=== PATIENT | female | born 1950 | race African-American/Black ===

== ENCOUNTER 2021-11-24 23:47 | Inpatient (IN) | payer MEDICARE, MEDICAID ==
[2021-11-25 00:40] LABS: INR-International Normal Ratio 1.8; Prothrombin Time 18.8 sec (9.5-12.1)
[2021-11-25 00:41] LABS: Bilirubin Neg (Negative); Blood, Urine 10 (Negative); Clarity Cloudy (Clear); Glucose, Urine (Dipstick) >=1000 mg/dL (Negative); Ketone, Urine Negative (Negative); Leukocyte Negative (Negative); Nitrite Positive (Negative); Protein, Urine (Dipstick) 15 mg/dl (Neg-Trace); Specific Gravity, Urine 1.015 (1.002-1.036); Urobilinogen Normal mg/dL (Less than 2)
[2021-11-25 00:45] LABS: ALT (SGPT) 22 U/L (8-55); AST (SGOT) 25 U/L (5-34); Albumin 3.4 g/dL (3.4-4.8); Alkaline Phosphatase 27 U/L (40-110); Anion Gap 13 mmol/L (10-20); BUN (Urea Nitrogen) 17 mg/dL (9.8-20.1); Bilirubin, Total 0.3 mg/dL (0.2-1.2); Calc. Creatinine Clearance 0 mL/min (70-130); Calcium 8.4 mg/dL (7.8-10.44); Carbon Dioxide 22 mmol/L (23-31); Chloride 109 mmol/L (98-107); Globulin 2.6 g/dL (2.4-3.5); Glucose 95 mg/dL (83-110); Magnesium 1.8 mg/dL (1.6-2.6); Potassium 3.9 mmol/L (3.5-5.1); Sodium 140 mmol/L (136-145)
[2021-11-25 00:50] LABS: RBC/HPF 0-3 HPF (0-3)
[2021-11-25 00:51] LABS: Bacteria/HPF 3+ HPF (None Seen); Mucous/LPF 1+ LPF (<2+)
[2021-11-25 01:16] LABS: SARS-CoV-2 NAA Rapid Test Not Detected (NotDetected)
[2021-11-25] MEDS ORDERED: cefTRIAXone\\ROCEPHIN 2 GM VIAL ONE (01:21)
[2021-11-25 02:20] LABS: #Eosinphils 0.1 10x3/uL (0.0-0.5); #Monocytes 0.6 10x3/uL (0.0-1.1); #Neutrophils 9.6 10x3/uL (1.5-8.4); %Basophils 0.1 % (0.0-2.0); %Eosinophils 0.7 % (0.0-6.0); %Lymphocytes 7.6 % (18.0-47.0); %Monocytes 5.7 % (0.0-10.0); %Neutrophils 85.6 % (40.0-75.0); Hemoglobin 9.4 g/dL (12.0-15.5); Mean Corpuscular HGB CONC 30.6 g/dL (32.0-36.0); Mean Corpuscular Hemoglobin 23.5 pg (27.0-33.0); Mean Corpuscular Volume 76.8 fl (81.6-98.3); Mean Platelet Volume 10.4 fl (7.4-10.4); Platelet Count 167 10x3/uL (150-450); RBC Distribution Width 21.6 % (11.5-14.5); White Blood Cell (WBC) Count 11.2 10x3/uL (3.5-10.5)
[2021-11-25] MEDS ORDERED: Pantoprazole 40 MG VIAL ONE (02:45)
[2021-11-25] MEDS ORDERED: Ventolin HFA Inhaler 60 PUFF INHALER INH PRN (03:46)
[2021-11-25] MEDS ORDERED: clonazePAM 1 MG TAB PO PRN (03:46)
[2021-11-25] MEDS ORDERED: Warfarin Sodium 2 MG TAB PO SCH (04:45)
[2021-11-25] MEDS: Sodium Chloride 0.9% 1,000 ML IV SCH ×2 (04:52→14:08)
[2021-11-25 05:51] LABS: Lactic Acid 0.4 mmol/L (0.5-2.2)
[2021-11-25 05:53] LABS: #Eosinphils 0.1 10x3/uL (0.0-0.5); #Monocytes 0.7 10x3/uL (0.0-1.1); %Basophils 0.2 % (0.0-2.0); %Eosinophils 1.1 % (0.0-6.0); %Neutrophils 78.4 % (40.0-75.0); Hemoglobin 9.4 g/dL (12.0-15.5); Mean Corpuscular Volume 77.3 fl (81.6-98.3); Mean Platelet Volume 11.3 fl (7.4-10.4); Platelet Count 168 10x3/uL (150-450); RBC Distribution Width 21.8 % (11.5-14.5); Red Blood Cell (RBC) Count 3.92 10x6/uL (3.90-5.03); White Blood Cell (WBC) Count 10.2 10x3/uL (3.5-10.5)
[2021-11-25 05:57] LABS: Anion Gap 12 mmol/L (10-20); BUN (Urea Nitrogen) 13 mg/dL (9.8-20.1); Calc. Creatinine Clearance 61 mL/min (70-130); Calcium 8.4 mg/dL (7.8-10.44); Carbon Dioxide 21 mmol/L (23-31); Chloride 112 mmol/L (98-107); Glucose 94 mg/dL (83-110); Magnesium 1.9 mg/dL (1.6-2.6); Potassium 4.1 mmol/L (3.5-5.1); Sodium 141 mmol/L (136-145)
[2021-11-25 06:13] LABS: Troponin I 0.014 ng/mL (< 0.028)
[2021-11-25 06:19] LABS: Amphetamine Not Detected (NotDetected); Barbiturates Screen Not Detected (NotDetected); Benzodiazepine Screen Not Detected (NotDetected); Cocaine Metabolite Screen Not Detected (NotDetected); Methadone Not Detected (NotDetected); Methamphetamine Not Detected (NotDetected); Opiate Screen Not Detected (NotDetected); Oxycodone Screen Not Detected (NotDetected); Phencyclidine (PCP) Not Detected (NotDetected); THC/Cannabinoid Screen Not Detected (NotDetected); Tricyclic Screen Not Detected (NotDetected)
[2021-11-25 06:42] LABS: Ferritin 11.32 ng/mL (10-291)
[2021-11-25] MEDS: Empagliflozin 25 MG TAB PO SCH (08:51)
[2021-11-25] MEDS: Pancrelipase DR 12,000 1 CAP PO SCH ×3 (08:52→17:44)
[2021-11-25] MEDS: Trospium 20 MG TAB PO SCH ×2 (08:52→21:12)
[2021-11-25] MEDS: Losartan 25 MG TAB PO SCH (08:52)
[2021-11-25] MEDS ORDERED: Escitalopram Oxalate 10 mg Tablet PO SCH (09:00)
[2021-11-25] MEDS ORDERED: Warfarin Sodium 7.5 MG TAB PO SCH (17:00)
[2021-11-25] MEDS: Montelukast Sodium 10 mg Tablet PO SCH (21:12)
[2021-11-25] MEDS: Rosuvastatin 10 MG TAB PO SCH (21:12)
[2021-11-25] MEDS: traZODone HCl 50 MG TAB PO SCH (21:12)
[2021-11-25] MEDS: Aspirin 81 mg Enteric Coated Tablet PO SCH (21:12)
[2021-11-25] MEDS: Heparin 5,000 UNITS/ML VIAL SC SCH (21:44)
[2021-11-26] MEDS: cefTRIAXone\\ROCEPHIN 1 GM in Sodium Chloride 0.9% 100 ML IVPB SCH (01:13)
[2021-11-26] MEDS: Sodium Chloride 0.9% 1,000 ML IV SCH ×3 (01:16→21:20)
[2021-11-26 04:27] LABS: #Eosinphils 0.1 10x3/uL (0.0-0.5); #Monocytes 0.5 10x3/uL (0.0-1.1); #Neutrophils 3.1 10x3/uL (1.5-8.4); %Basophils 0.2 % (0.0-2.0); %Eosinophils 1.4 % (0.0-6.0); %Lymphocytes 27.3 % (18.0-47.0); %Monocytes 9.6 % (0.0-10.0); %Neutrophils 61.3 % (40.0-75.0); Hemoglobin 8.8 g/dL (12.0-15.5); Mean Corpuscular HGB CONC 30.7 g/dL (32.0-36.0); Mean Corpuscular Hemoglobin 23.8 pg (27.0-33.0); Mean Corpuscular Volume 77.6 fl (81.6-98.3); Platelet Count 151 10x3/uL (150-450); RBC Distribution Width 21.9 % (11.5-14.5)
[2021-11-26 04:41] LABS: Anion Gap 10 mmol/L (10-20); BUN (Urea Nitrogen) 9 mg/dL (9.8-20.1); Calc. Creatinine Clearance 62 mL/min (70-130); Carbon Dioxide 20 mmol/L (23-31); Chloride 116 mmol/L (98-107); Glucose 107 mg/dL (83-110); Potassium 3.3 mmol/L (3.5-5.1); Sodium 143 mmol/L (136-145)
[2021-11-26 04:49] LABS: INR-International Normal Ratio 1.6; Prothrombin Time 17.2 sec (9.5-12.1)
[2021-11-26] MEDS ORDERED: Ferrous Gluconate 324 MG TAB PO SCH (08:00)
[2021-11-26] MEDS: Folic Acid 1 MG TAB PO SCH (08:38)
[2021-11-26] MEDS: Losartan 25 MG TAB PO SCH (08:38)
[2021-11-26] MEDS: Pancrelipase DR 12,000 1 CAP PO SCH ×3 (08:39→17:23)
[2021-11-26] MEDS: Empagliflozin 25 MG TAB PO SCH (08:39)
[2021-11-26] MEDS: Heparin 5,000 UNITS/ML VIAL SC SCH ×3 (13:22→21:26)
[2021-11-26] MEDS: Trospium 20 MG TAB PO SCH ×2 (13:22→21:26)
[2021-11-26] MEDS: Escitalopram Oxalate 20 mg Tablet PO SCH (13:23)
[2021-11-26] MEDS ORDERED: GoLYTELY 4,000 ml Bottle PO SCH (18:00)
[2021-11-26] MEDS ORDERED: Dextrose 50% Abboject 50 ML SYRINGE SLOW IVP SCH (21:15)
[2021-11-26] MEDS: Montelukast Sodium 10 mg Tablet PO SCH (21:18)
[2021-11-26] MEDS: Aspirin 81 mg Enteric Coated Tablet PO SCH (21:18)
[2021-11-26] MEDS: Rosuvastatin 10 MG TAB PO SCH (21:18)
[2021-11-26] MEDS: traZODone HCl 50 MG TAB PO SCH (23:36)
[2021-11-27] MEDS: cefTRIAXone\\ROCEPHIN 1 GM in Sodium Chloride 0.9% 100 ML IVPB SCH (01:22)
[2021-11-27] MEDS: Dextrose 5 % And 0.9 % NaCl 1,000 ML IV SCH ×2 (04:05→16:37)
[2021-11-27 04:32] LABS: #Eosinphils 0.1 10x3/uL (0.0-0.5); #Monocytes 0.6 10x3/uL (0.0-1.1); %Basophils 0.1 % (0.0-2.0); %Eosinophils 1.2 % (0.0-6.0); %Lymphocytes 10.4 % (18.0-47.0); %Monocytes 7.8 % (0.0-10.0); %Neutrophils 80.2 % (40.0-75.0); Mean Corpuscular HGB CONC 30.5 g/dL (32.0-36.0); Mean Corpuscular Volume 78.8 fl (81.6-98.3); Platelet Count 183 10x3/uL (150-450); RBC Distribution Width 22.2 % (11.5-14.5); Red Blood Cell (RBC) Count 4.16 10x6/uL (3.90-5.03); White Blood Cell (WBC) Count 7.5 10x3/uL (3.5-10.5)
[2021-11-27 04:42] LABS: Anion Gap 13 mmol/L (10-20); BUN (Urea Nitrogen) 5 mg/dL (9.8-20.1); Calc. Creatinine Clearance 68 mL/min (70-130); Calcium 8.8 mg/dL (7.8-10.44); Carbon Dioxide 23 mmol/L (23-31); Chloride 117 mmol/L (98-107); Glucose 78 mg/dL (83-110); Potassium 3.9 mmol/L (3.5-5.1); Sodium 149 mmol/L (136-145)
[2021-11-27 04:56] LABS: Platelet Morphology Comment Appears Adequate
[2021-11-27 04:58] LABS: Hypochromia SLIGHT = 6-15 cells (100X) (0-5/hpf); Macrocytosis SLIGHT = 6-15 cells (100X) (0-5/hpf); Microcytosis SLIGHT = 6-15 cells (100X) (0-5/hpf); Poikilocytosis SLIGHT = 6-15 cells (100X) (0-5/hpf); Schistocytes SLIGHT = 2-5 cells (100X) (0-1/hpf); Target Cells SLIGHT = 2-5 cells (100X) (0-1/hpf); Tear Drops SLIGHT = 2-5 cells (100X) (0-1/hpf)
[2021-11-27 04:59] LABS: Anisocytosis SLIGHT = 6-15 cells (100X) (0-5/hpf); Elliptocytes SLIGHT = 2-5 cells (100X) (0-1/hpf)
[2021-11-27 05:09] LABS: INR-International Normal Ratio 1.4; Prothrombin Time 14.5 sec (9.5-12.1)
[2021-11-27] MEDS ORDERED: GoLYTELY 4,000 ml Bottle PO SCH (07:00)
[2021-11-27] MEDS: Pancrelipase DR 12,000 1 CAP PO SCH ×3 (09:15→16:22)
[2021-11-27] MEDS: Folic Acid 1 MG TAB PO SCH (09:16)
[2021-11-27] MEDS: Losartan 25 MG TAB PO SCH (09:16)
[2021-11-27] MEDS: Escitalopram Oxalate 20 mg Tablet PO SCH (09:16)
[2021-11-27] MEDS: Trospium 20 MG TAB PO SCH ×2 (09:16→21:35)
[2021-11-27] MEDS: Empagliflozin 25 MG TAB PO SCH (09:20)
[2021-11-27] MEDS ORDERED: PROPOFOL 40 ML ONE (13:50)
[2021-11-27] MEDS ORDERED: Lidocaine 2% MPF 10 ML AMP (For Epidural Use) ONE (13:50)
[2021-11-27] MEDS ORDERED: PHENYLEPHRINE-NS 100 MCG/ML 10 ML SYRINGE ONE (14:40)
[2021-11-27] MEDS ORDERED: Warfarin Sodium 10 MG TAB PO SCH (18:00)
[2021-11-27] MEDS: Rosuvastatin 10 MG TAB PO SCH (21:35)
[2021-11-27] MEDS: Montelukast Sodium 10 mg Tablet PO SCH (21:35)
[2021-11-27] MEDS: Aspirin 81 mg Enteric Coated Tablet PO SCH (21:35)
[2021-11-27] MEDS: traZODone HCl 50 MG TAB PO SCH (21:35)
[2021-11-27] MEDS: Enoxaparin Sodium 60 MG/0.6 ML SYRINGE SC SCH (21:36)
[2021-11-28] MEDS: cefTRIAXone\\ROCEPHIN 1 GM in Sodium Chloride 0.9% 100 ML IVPB SCH (01:44)
[2021-11-28 04:40] LABS: Anion Gap 11 mmol/L (10-20); BUN (Urea Nitrogen) Less than 4 mg/dL (9.8-20.1); Calc. Creatinine Clearance 72 mL/min (70-130); Calcium 7.9 mg/dL (7.8-10.44); Carbon Dioxide 22 mmol/L (23-31); Chloride 114 mmol/L (98-107); Glucose 89 mg/dL (83-110); Potassium 3.5 mmol/L (3.5-5.1); Sodium 143 mmol/L (136-145)
[2021-11-28 04:42] LABS: #Eosinphils 0.2 10x3/uL (0.0-0.5); #Monocytes 0.5 10x3/uL (0.0-1.1); #Neutrophils 3.5 10x3/uL (1.5-8.4); %Basophils 0.2 % (0.0-2.0); %Lymphocytes 21.7 % (18.0-47.0); %Monocytes 8.9 % (0.0-10.0); Hemoglobin 8.8 g/dL (12.0-15.5); Mean Corpuscular HGB CONC 31.3 g/dL (32.0-36.0); Mean Corpuscular Hemoglobin 24.2 pg (27.0-33.0); Mean Corpuscular Volume 77.2 fl (81.6-98.3); Mean Platelet Volume 10.9 fl (7.4-10.4); Platelet Count 156 10x3/uL (150-450); RBC Distribution Width 21.4 % (11.5-14.5); Red Blood Cell (RBC) Count 3.64 10x6/uL (3.90-5.03); White Blood Cell (WBC) Count 5.3 10x3/uL (3.5-10.5)
[2021-11-28 04:45] LABS: INR-International Normal Ratio 1.4; Prothrombin Time 15.2 sec (9.5-12.1)
[2021-11-28] MEDS: Dextrose 5 % And 0.9 % NaCl 1,000 ML IV SCH (07:36)
[2021-11-28 08:07] LABS: Eosinophils 3 % (0-10); Lymphocytes 19 % (21-51); Monocytes 8 % (0-10); Neutrophil 70 % (42-75)
[2021-11-28 08:08] LABS: Platelet Morphology Comment Appears Adequate
[2021-11-28 08:09] LABS: MDiff Complete? YES
[2021-11-28 08:10] LABS: Anisocytosis SLIGHT = 6-15 cells (100X) (0-5/hpf); Hypochromia SLIGHT = 6-15 cells (100X) (0-5/hpf); Microcytosis SLIGHT = 6-15 cells (100X) (0-5/hpf)
[2021-11-28] MEDS: Pancrelipase DR 12,000 1 CAP PO SCH ×3 (08:36→17:27)
[2021-11-28] MEDS: Enoxaparin Sodium 60 MG/0.6 ML SYRINGE SC SCH ×2 (08:36→21:20)
[2021-11-28] MEDS: Escitalopram Oxalate 20 mg Tablet PO SCH (08:36)
[2021-11-28] MEDS: Losartan 25 MG TAB PO SCH (08:36)
[2021-11-28] MEDS: Empagliflozin 25 MG TAB PO SCH (08:37)
[2021-11-28] MEDS: Folic Acid 1 MG TAB PO SCH (08:37)
[2021-11-28] MEDS: Trospium 20 MG TAB PO SCH ×2 (08:37→21:20)
[2021-11-28] MEDS ORDERED: Warfarin Sodium 10 MG TAB PO SCH ×2 (17:00)
[2021-11-28 21:13] LABS: Iron 61 ug/dL (50-170); Iron Binding Capacity, Total 250 mcg/dL (265-497)
[2021-11-28] MEDS: Acetaminophen 500 MG TAB PO SCH (21:19)
[2021-11-28] MEDS: Aspirin 81 mg Enteric Coated Tablet PO SCH (21:20)
[2021-11-28] MEDS: Rosuvastatin 10 MG TAB PO SCH (21:21)
[2021-11-28] MEDS: Montelukast Sodium 10 mg Tablet PO SCH (21:21)
[2021-11-28] MEDS: traZODone HCl 50 MG TAB PO SCH (21:21)
[2021-11-29] MEDS: cefTRIAXone\\ROCEPHIN 1 GM in Sodium Chloride 0.9% 100 ML IVPB SCH (00:51)
[2021-11-29 04:18] LABS: INR-International Normal Ratio 1.9; Prothrombin Time 19.9 sec (9.5-12.1)
[2021-11-29 04:23] LABS: Anion Gap 13 mmol/L (10-20); BUN (Urea Nitrogen) 9 mg/dL (9.8-20.1); Calc. Creatinine Clearance 67 mL/min (70-130); Calcium 8.7 mg/dL (7.8-10.44); Carbon Dioxide 24 mmol/L (23-31); Chloride 110 mmol/L (98-107); Glucose 101 mg/dL (83-110); Potassium 3.6 mmol/L (3.5-5.1); Sodium 143 mmol/L (136-145)
[2021-11-29 04:43] LABS: #Eosinphils 0.1 10x3/uL (0.0-0.5); #Monocytes 0.7 10x3/uL (0.0-1.1); #Neutrophils 4.5 10x3/uL (1.5-8.4); %Basophils 0.2 % (0.0-2.0); %Eosinophils 1.4 % (0.0-6.0); %Lymphocytes 18.7 % (18.0-47.0); %Neutrophils 68.5 % (40.0-75.0); Hemoglobin 9.1 g/dL (12.0-15.5); Mean Corpuscular HGB CONC 30.5 g/dL (32.0-36.0); Mean Corpuscular Volume 78.6 fl (81.6-98.3); Platelet Count 151 10x3/uL (150-450); RBC Distribution Width 21.7 % (11.5-14.5); Red Blood Cell (RBC) Count 3.79 10x6/uL (3.90-5.03); White Blood Cell (WBC) Count 6.5 10x3/uL (3.5-10.5)
[2021-11-29] MEDS ORDERED: Enoxaparin Sodium 60 MG/0.6 ML SYRINGE ONE (08:47)
[2021-11-29] MEDS: Folic Acid 1 MG TAB PO SCH (09:02)
[2021-11-29] MEDS: Escitalopram Oxalate 20 mg Tablet PO SCH (09:02)
[2021-11-29] MEDS: Trospium 20 MG TAB PO SCH ×2 (09:02→20:50)
[2021-11-29] MEDS: Enoxaparin Sodium 60 MG/0.6 ML SYRINGE SC SCH ×2 (09:02→20:49)
[2021-11-29] MEDS: Acetaminophen 500 MG TAB PO SCH ×3 (09:02→20:50)
[2021-11-29] MEDS: Pancrelipase DR 12,000 1 CAP PO SCH ×3 (09:03→16:38)
[2021-11-29] MEDS: Empagliflozin 25 MG TAB PO SCH (09:03)
[2021-11-29] MEDS: Losartan 25 MG TAB PO SCH (09:04)
[2021-11-29] MEDS: Warfarin Sodium 7.5 MG TAB PO SCH (16:56)
[2021-11-29] MEDS: Aspirin 81 mg Enteric Coated Tablet PO SCH (20:50)
[2021-11-29] MEDS: traZODone HCl 50 MG TAB PO SCH (20:50)
[2021-11-29] MEDS: Rosuvastatin 10 MG TAB PO SCH (20:50)
[2021-11-29] MEDS: Montelukast Sodium 10 mg Tablet PO SCH (20:51)
[2021-11-30] MEDS: cefTRIAXone\\ROCEPHIN 1 GM in Sodium Chloride 0.9% 100 ML IVPB SCH (00:55)
[2021-11-30 04:46] LABS: Anion Gap 15 mmol/L (10-20); BUN (Urea Nitrogen) 12 mg/dL (9.8-20.1); Calc. Creatinine Clearance 69 mL/min (70-130); Calcium 9.1 mg/dL (7.8-10.44); Carbon Dioxide 26 mmol/L (23-31); Chloride 107 mmol/L (98-107); Glucose 104 mg/dL (83-110); Sodium 144 mmol/L (136-145)
[2021-11-30 04:59] LABS: INR-International Normal Ratio 2.1; Prothrombin Time 22.3 sec (9.5-12.1)
[2021-11-30 05:01] LABS: #Eosinphils 0.1 10x3/uL (0.0-0.5); #Monocytes 0.5 10x3/uL (0.0-1.1); %Basophils 0.2 % (0.0-2.0); %Eosinophils 1.6 % (0.0-6.0); %Lymphocytes 25.3 % (18.0-47.0); %Monocytes 10.7 % (0.0-10.0); Hemoglobin 9.2 g/dL (12.0-15.5); Mean Corpuscular HGB CONC 30.3 g/dL (32.0-36.0); Mean Corpuscular Volume 79.4 fl (81.6-98.3); Platelet Count 152 10x3/uL (150-450); RBC Distribution Width 21.6 % (11.5-14.5); Red Blood Cell (RBC) Count 3.83 10x6/uL (3.90-5.03); White Blood Cell (WBC) Count 4.9 10x3/uL (3.5-10.5)
[2021-11-30] MEDS: Pancrelipase DR 12,000 1 CAP PO SCH ×3 (08:52→16:17)
[2021-11-30] MEDS: Enoxaparin Sodium 60 MG/0.6 ML SYRINGE SC SCH ×2 (08:53→20:06)
[2021-11-30] MEDS: Folic Acid 1 MG TAB PO SCH (08:53)
[2021-11-30] MEDS: Losartan 25 MG TAB PO SCH (08:53)
[2021-11-30] MEDS: Escitalopram Oxalate 20 mg Tablet PO SCH (08:53)
[2021-11-30] MEDS: Acetaminophen 500 MG TAB PO SCH ×3 (08:53→20:05)
[2021-11-30] MEDS: Trospium 20 MG TAB PO SCH ×2 (08:54→20:12)
[2021-11-30] MEDS: Empagliflozin 25 MG TAB PO SCH (08:54)
[2021-11-30] MEDS: Warfarin Sodium 7.5 MG TAB PO SCH (16:17)
[2021-11-30] MEDS: traZODone HCl 50 MG TAB PO SCH (20:03)
[2021-11-30] MEDS: Montelukast Sodium 10 mg Tablet PO SCH (20:03)
[2021-11-30] MEDS: Aspirin 81 mg Enteric Coated Tablet PO SCH (20:03)
[2021-11-30] MEDS: Rosuvastatin 10 MG TAB PO SCH (20:04)
[2021-12-01] MEDS: cefTRIAXone\\ROCEPHIN 1 GM in Sodium Chloride 0.9% 100 ML IVPB SCH (01:10)
[2021-12-01 04:54] LABS: INR-International Normal Ratio 2.4
[2021-12-01 05:04] LABS: #Eosinphils 0.1 10x3/uL (0.0-0.5); #Monocytes 0.5 10x3/uL (0.0-1.1); #Neutrophils 3.8 10x3/uL (1.5-8.4); %Basophils 0.2 % (0.0-2.0); %Eosinophils 2.4 % (0.0-6.0); %Lymphocytes 24.9 % (18.0-47.0); %Monocytes 8.9 % (0.0-10.0); %Neutrophils 63.4 % (40.0-75.0); Hemoglobin 9.7 g/dL (12.0-15.5); Mean Corpuscular Hemoglobin 24.2 pg (27.0-33.0); Mean Corpuscular Volume 78.1 fl (81.6-98.3); Platelet Count 166 10x3/uL (150-450); RBC Distribution Width 21.7 % (11.5-14.5); Red Blood Cell (RBC) Count 4.01 10x6/uL (3.90-5.03); White Blood Cell (WBC) Count 5.9 10x3/uL (3.5-10.5)
[2021-12-01 05:06] LABS: Anion Gap 15 mmol/L (10-20); BUN (Urea Nitrogen) 21 mg/dL (9.8-20.1); Calc. Creatinine Clearance 65 mL/min (70-130); Calcium 9.9 mg/dL (7.8-10.44); Carbon Dioxide 27 mmol/L (23-31); Chloride 104 mmol/L (98-107); Glucose 84 mg/dL (83-110); Potassium 4.6 mmol/L (3.5-5.1); Sodium 141 mmol/L (136-145)
[2021-12-01] MEDS: Pancrelipase DR 12,000 1 CAP PO SCH ×3 (08:50→16:06)
[2021-12-01] MEDS: Acetaminophen 500 MG TAB PO SCH ×3 (08:50→21:55)
[2021-12-01] MEDS: Empagliflozin 25 MG TAB PO SCH (08:51)
[2021-12-01] MEDS: Escitalopram Oxalate 20 mg Tablet PO SCH (08:51)
[2021-12-01] MEDS: Losartan 25 MG TAB PO SCH (08:51)
[2021-12-01] MEDS: Folic Acid 1 MG TAB PO SCH (08:51)
[2021-12-01] MEDS: Enoxaparin Sodium 60 MG/0.6 ML SYRINGE SC SCH ×2 (08:51→21:54)
[2021-12-01] MEDS: Trospium 20 MG TAB PO SCH ×2 (08:52→21:53)
[2021-12-01] MEDS: Warfarin Sodium 7.5 MG TAB PO SCH (16:06)
[2021-12-01 16:35] LABS: SARS-CoV-2 PCR by NAA Not Detected (NotDetected)
[2021-12-01 16:53] LABS: INR-International Normal Ratio 2.3; PTT 48.2 sec (22.0-33.0)
[2021-12-01] MEDS: Aspirin 81 mg Enteric Coated Tablet PO SCH (21:53)
[2021-12-01] MEDS: traZODone HCl 50 MG TAB PO SCH (21:53)
[2021-12-01] MEDS: Rosuvastatin 10 MG TAB PO SCH (21:53)
[2021-12-01] MEDS: Montelukast Sodium 10 mg Tablet PO SCH (21:54)
[2021-12-02 04:29] LABS: INR-International Normal Ratio 2.2; Prothrombin Time 23.3 sec (9.5-12.1)
[2021-12-02 04:33] LABS: #Eosinphils 0.1 10x3/uL (0.0-0.5); #Monocytes 0.9 10x3/uL (0.0-1.1); #Neutrophils 6.4 10x3/uL (1.5-8.4); %Basophils 0.2 % (0.0-2.0); %Eosinophils 1.5 % (0.0-6.0); %Lymphocytes 19.3 % (18.0-47.0); %Monocytes 9.5 % (0.0-10.0); %Neutrophils 69.1 % (40.0-75.0); Anion Gap 17 mmol/L (10-20); BUN (Urea Nitrogen) 29 mg/dL (9.8-20.1); Calc. Creatinine Clearance 55 mL/min (70-130); Carbon Dioxide 27 mmol/L (23-31); Chloride 99 mmol/L (98-107); Glucose 94 mg/dL (83-110); Mean Corpuscular HGB CONC 30.7 g/dL (32.0-36.0); Mean Corpuscular Hemoglobin 23.9 pg (27.0-33.0); Mean Corpuscular Volume 77.8 fl (81.6-98.3); Platelet Count 203 10x3/uL (150-450); Potassium 4.6 mmol/L (3.5-5.1); Sodium 138 mmol/L (136-145); White Blood Cell (WBC) Count 9.2 10x3/uL (3.5-10.5)
[2021-12-02] MEDS: Acetaminophen 500 MG TAB PO SCH ×3 (09:11→21:25)
[2021-12-02] MEDS: Pancrelipase DR 12,000 1 CAP PO SCH ×3 (09:11→17:14)
[2021-12-02] MEDS: Senokot S 8.6-50 MG TAB PO PRN (09:12)
[2021-12-02] MEDS: Folic Acid 1 MG TAB PO SCH (09:12)
[2021-12-02] MEDS: Empagliflozin 25 MG TAB PO SCH (09:12)
[2021-12-02] MEDS: Losartan 25 MG TAB PO SCH ×2 (09:12→09:13)
[2021-12-02] MEDS: Trospium 20 MG TAB PO SCH ×2 (09:14→21:24)
[2021-12-02] MEDS: Enoxaparin Sodium 60 MG/0.6 ML SYRINGE SC SCH ×2 (09:14→21:32)
[2021-12-02] MEDS: Escitalopram Oxalate 20 mg Tablet PO SCH (09:14)
[2021-12-02] MEDS: Bisacodyl 5 MG TAB PO PRN (15:38)
[2021-12-02] MEDS: Warfarin Sodium 3 MG TAB PO SCH (17:14)
[2021-12-02] MEDS: traZODone HCl 50 MG TAB PO SCH (21:24)
[2021-12-02] MEDS: Rosuvastatin 10 MG TAB PO SCH (21:24)
[2021-12-02] MEDS: Montelukast Sodium 10 mg Tablet PO SCH (21:24)
[2021-12-02] MEDS: Aspirin 81 mg Enteric Coated Tablet PO SCH (21:24)
[2021-12-03 04:50] LABS: #Eosinphils 0.1 10x3/uL (0.0-0.5); #Monocytes 0.7 10x3/uL (0.0-1.1); %Basophils 0.3 % (0.0-2.0); %Eosinophils 1.6 % (0.0-6.0); %Lymphocytes 21.7 % (18.0-47.0); %Monocytes 9.8 % (0.0-10.0); %Neutrophils 66.3 % (40.0-75.0); Hemoglobin 11.3 g/dL (12.0-15.5); INR-International Normal Ratio 2.4; Mean Corpuscular Hemoglobin 23.8 pg (27.0-33.0); Mean Corpuscular Volume 76.8 fl (81.6-98.3); Platelet Count 184 10x3/uL (150-450); Prothrombin Time 24.7 sec (9.5-12.1); RBC Distribution Width 21.1 % (11.5-14.5); Red Blood Cell (RBC) Count 4.74 10x6/uL (3.90-5.03); White Blood Cell (WBC) Count 7.6 10x3/uL (3.5-10.5)
[2021-12-03 05:20] LABS: Anion Gap 21 mmol/L (10-20); BUN (Urea Nitrogen) 33 mg/dL (9.8-20.1); Calc. Creatinine Clearance 50 mL/min (70-130); Calcium 11.3 mg/dL (7.8-10.44); Carbon Dioxide 23 mmol/L (23-31); Chloride 99 mmol/L (98-107); Glucose 91 mg/dL (83-110); Potassium 5.3 mmol/L (3.5-5.1); Sodium 138 mmol/L (136-145)
[2021-12-03] MEDS: Pancrelipase DR 12,000 1 CAP PO SCH ×3 (08:42→15:59)
[2021-12-03] MEDS: Acetaminophen 500 MG TAB PO SCH ×3 (08:43→21:03)
[2021-12-03] MEDS: Senokot S 8.6-50 MG TAB PO PRN (08:43)
[2021-12-03] MEDS: Bisacodyl 5 MG TAB PO PRN (08:43)
[2021-12-03] MEDS: Escitalopram Oxalate 20 mg Tablet PO SCH (08:43)
[2021-12-03] MEDS: Trospium 20 MG TAB PO SCH ×2 (08:43→21:10)
[2021-12-03] MEDS: Folic Acid 1 MG TAB PO SCH (08:43)
[2021-12-03] MEDS: Enoxaparin Sodium 60 MG/0.6 ML SYRINGE SC SCH ×2 (08:44→21:05)
[2021-12-03] MEDS: Empagliflozin 25 MG TAB PO SCH (08:44)
[2021-12-03] MEDS: Losartan 25 MG TAB PO SCH (08:44)
[2021-12-03] MEDS: Sodium Chloride 0.9% 1,000 ML IV SCH ×2 (08:56→19:00)
[2021-12-03 12:14] LABS: ALT (SGPT) 67 U/L (8-55); AST (SGOT) 70 U/L (5-34); Albumin 4.2 g/dL (3.4-4.8); Alkaline Phosphatase 35 U/L (40-110); Anion Gap 16 mmol/L (10-20); BUN (Urea Nitrogen) 31 mg/dL (9.8-20.1); Bilirubin, Total 0.5 mg/dL (0.2-1.2); Calc. Creatinine Clearance 46 mL/min (70-130); Calcium 11.1 mg/dL (7.8-10.44); Carbon Dioxide 27 mmol/L (23-31); Chloride 98 mmol/L (98-107); Globulin 4.4 g/dL (2.4-3.5); Glucose 101 mg/dL (83-110); Potassium 4.7 mmol/L (3.5-5.1); Protein, Total 8.6 g/dL (5.8-8.1); Sodium 136 mmol/L (136-145)
[2021-12-03 12:48] VITALS: BMI 21.8
[2021-12-03 15:18] LABS: Hemoglobin A2 2.3 % (1.8-3.2); Hemoglobin F 0 % (0.0-2.0)
[2021-12-03] MEDS: Warfarin Sodium 3 MG TAB PO SCH (15:58)
[2021-12-03] MEDS: traZODone HCl 50 MG TAB PO SCH (21:02)
[2021-12-03] MEDS: Rosuvastatin 10 MG TAB PO SCH (21:03)
[2021-12-03] MEDS: Montelukast Sodium 10 mg Tablet PO SCH (21:03)
[2021-12-03] MEDS: Aspirin 81 mg Enteric Coated Tablet PO SCH (21:03)
[2021-12-04 04:16] LABS: #Eosinphils 0.1 10x3/uL (0.0-0.5); #Monocytes 0.8 10x3/uL (0.0-1.1); #Neutrophils 3.9 10x3/uL (1.5-8.4); %Basophils 0.2 % (0.0-2.0); %Eosinophils 1.5 % (0.0-6.0); %Lymphocytes 26.2 % (18.0-47.0); %Monocytes 11.8 % (0.0-10.0); Mean Corpuscular HGB CONC 31.2 g/dL (32.0-36.0); Mean Corpuscular Hemoglobin 24.3 pg (27.0-33.0); Mean Corpuscular Volume 78.1 fl (81.6-98.3); Platelet Count 188 10x3/uL (150-450); Red Blood Cell (RBC) Count 4.11 10x6/uL (3.90-5.03); White Blood Cell (WBC) Count 6.5 10x3/uL (3.5-10.5)
[2021-12-04 04:23] LABS: INR-International Normal Ratio 2.7; Prothrombin Time 28.1 sec (9.5-12.1)
[2021-12-04 04:35] LABS: Anion Gap 13 mmol/L (10-20); BUN (Urea Nitrogen) 27 mg/dL (9.8-20.1); Calc. Creatinine Clearance 60 mL/min (70-130); Calcium 9.8 mg/dL (7.8-10.44); Carbon Dioxide 26 mmol/L (23-31); Chloride 105 mmol/L (98-107); Glucose 88 mg/dL (83-110); Potassium 4.3 mmol/L (3.5-5.1); Sodium 140 mmol/L (136-145)
[2021-12-04] MEDS: Sodium Chloride 0.9% 1,000 ML IV SCH ×2 (05:09→14:07)
[2021-12-04] MEDS: Empagliflozin 25 MG TAB PO SCH (08:15)
[2021-12-04] MEDS: Acetaminophen 500 MG TAB PO SCH ×2 (08:15→15:20)
[2021-12-04] MEDS: Enoxaparin Sodium 60 MG/0.6 ML SYRINGE SC SCH (08:15)
[2021-12-04] MEDS: Escitalopram Oxalate 20 mg Tablet PO SCH (08:15)
[2021-12-04] MEDS: Losartan 25 MG TAB PO SCH (08:16)
[2021-12-04] MEDS: Folic Acid 1 MG TAB PO SCH (08:16)
[2021-12-04] MEDS: Trospium 20 MG TAB PO SCH (08:16)
[2021-12-04] MEDS: Pancrelipase DR 12,000 1 CAP PO SCH ×2 (08:16→12:39)
[2021-12-04 15:30] VITALS: BP 112/79; TEMP 98.5
== END 2021-12-04 16:20 | disposition home or self-care (01) | DRG 812 ==
LOC: CSHERS 23:47 → OBSVTOIN 11-25 02:53 → INTOOBSV 11-25 02:53 → CSHTELE 11-25 02:53
PROVIDERS: ADMIT Family Medicine; ATTEND Internal Medicine
PROC: 0DJ08ZZ Inspection of Upper Intestinal Tract, Via Natural or Artificial Opening Endoscopic (ICD-10-PCS; principal; 2021-11-27)
PROC: 0DBM8ZZ Excision of Descending Colon, Via Natural or Artificial Opening Endoscopic (ICD-10-PCS; 2021-11-27)
PROC: 0DBP8ZZ Excision of Rectum, Via Natural or Artificial Opening Endoscopic (ICD-10-PCS; 2021-11-27)
DX: D64.89 Other specified anemias (principal); N39.0 Urinary tract infection, site not specified; E87.2 Acidosis; E44.0 Moderate protein-calorie malnutrition; K92.1 Melena; J44.9 Chronic obstructive pulmonary disease, unspecified; F17.210 Nicotine dependence, cigarettes, uncomplicated; K44.9 Diaphragmatic hernia without obstruction or gangrene; K62.1 Rectal polyp; T50.915A Adverse effect of multiple unspecified drugs, medicaments and biological substances, initial encounter; R27.0 Ataxia, unspecified; E86.0 Dehydration; E87.5 Hyperkalemia; E83.52 Hypercalcemia; K59.00 Constipation, unspecified; E11.9 Type 2 diabetes mellitus without complications; K21.9 Gastro-esophageal reflux disease without esophagitis; F03.90 Unspecified dementia, unspecified severity, without behavioral disturbance, psychotic disturbance, mood disturbance, and anxiety; E78.5 Hyperlipidemia, unspecified; E86.1 Hypovolemia; D12.4 Benign neoplasm of descending colon; M19.90 Unspecified osteoarthritis, unspecified site; I45.10 Unspecified right bundle-branch block; I50.9 Heart failure, unspecified; R32 Unspecified urinary incontinence; Z20.822 Contact with and (suspected) exposure to COVID-19; Z95.4 Presence of other heart-valve replacement; Z79.82 Long term (current) use of aspirin; Z79.899 Other long term (current) drug therapy; Z79.01 Long term (current) use of anticoagulants; Z79.51 Long term (current) use of inhaled steroids; Z79.84 Long term (current) use of oral hypoglycemic drugs; Z98.891 History of uterine scar from previous surgery; Z90.710 Acquired absence of both cervix and uterus; Z90.49 Acquired absence of other specified parts of digestive tract; Z98.890 Other specified postprocedural states; Z72.89 Other problems related to lifestyle; Z68.21 Body mass index [BMI] 21.0-21.9, adult; Z98.41 Cataract extraction status, right eye; Z98.42 Cataract extraction status, left eye; Z71.6 Tobacco abuse counseling
CPT/HCPCS: 36415; 36416; 51701; 70551; 71046; 80048; 80053; 80306; 81003; 81015; 82274; 82607; 82728; 82746; 83021; 83540; 83550; 83605; 83735; 84484; 85025; 85060; 85610; 85730; 86850; 86900; 86901; 87040; 87077; 87086; 87186; 88305; 93005; 93010; 93306; 94640; 94760; 96365; 96375; C9113; G0378; J0696; J1644; J1650; J2704; J3490; J7042; J7050; J7620; J7999; U0002; U0003; U0005